=== PATIENT | male | born 1975 | race Two or more races ===

== ENCOUNTER 2025-01-06 12:55 | Outpatient (OUT) | payer OTHER, SELFPAY ==
--- NOTE | 2025-01-06 13:09 | XR_ITS ---
The [address] [address] Patient Name: RYAN YI MRN: [id number] date: 1975 Sex: M Assigned Patient Location: [facility] Current Patient Location: Accession/Order Number: [id number] Exam Date: 01/06/2025 13:15 Report Date: 01/07/2025 08:09 At the request of: MARY CORDON Procedure: XR cervical spine 2-3V EXAMINATION: XR cervical spine 2-3V HISTORY: Cervicalgia M54.2 ; numbness and tingling in right fingers, neck pain COMPARISON: No relevant comparison available. FINDINGS: BONES: Straightening of normal lordotic curvature. No fracture, spondylolisthesis, or bone lesion. Mild degenerative facet arthropathy C5-6, C6-7. DISC SPACES: Minimal narrowing C4-5. Intervertebral disc spacer at C5-6. PARASPINOUS: Negative. No paraspinous abnormality is seen. OTHER: Negative. XR/XR cervical spine 2-3V IMPRESSION: 1. Prior intervertebral disc spacer placement at C5-6; no appreciable acute abnormality. 2. Minimal degenerative changes. Electronically authenticated by: JASMEET COLEMAN Date: 01/07/2025 08:09
== END 2025-01-06 12:56 | disposition home or self-care (01) ==
PROVIDERS: PCP Family Medicine; Visit Provider Chiropractor
DX: M54.2 Cervicalgia (principal)
CPT/HCPCS: 72040